=== PATIENT | female | born 1950 | race Caucasian/White ===

== ENCOUNTER 2025-05-06 05:30 | Outpatient (REF) | payer OTHER, SELFPAY ==
[2025-05-06 05:33] LABS: MANUAL DIFF FLAG NO
--- OUTSIDE RECORDS SUMMARY | 2025-05-06 05:33 | XMS_ITS | Clinical Summary ---
Author Organization [facility] Address [address] [place] [address] Care Team Providers Care Solar Sales Specialist Name Role Phone Marleny Gutierrez MD Primary Care Provider [phone] Allergies No known active allergies Medications amLODIPine (NORVASC) 5 mg tablet Take 1 tablet (5 mg total) by mouth 1 (one) time each day. 03/21/2024 Active atorvastatin (LIPITOR) 40 mg tablet Take 1 tablet (40 mg total) by mouth 1 (one) time each day. 04/16/2024 Active dronedarone (Multaq) 400 mg tablet Take 1 tablet (400 mg total) by mouth 2 (two) times a day. 01/16/2024 Active levothyroxine (SYNTHROID, LEVOTHROID) 88 mcg tablet Take 1 tablet (88 mcg total) by mouth 1 (one) time each day. 03/21/2024 Active rivaroxaban (Xarelto) 20 mg tablet Take 1 Tablet by mouth Daily before dinner. 01/16/2024 Active Active Problems Problem Noted Date Diagnosed Date Hypertension 09/28/2024 Overview (09/28/2024): Last Assessment & Plan: Patient blood pressure somewhat robust in office today, but well-controlled on chart review. For now, no changes in her current treatment plan with amlodipine. Coronary artery disease invo lving red devil coronary artery of red devil heart without angina pectoris 01/16/2024 Overview (09/28/2024): Type II NSTEMI 11/2022 in the setting of A-fib with RVR Proximal D1 70% stenosis managed medically Last Assessment & Plan: The patient has nonobstructive coronary artery disease not felt to be the etiology of her elevated troponin during her most recent hospitalization. Instead, it is felt that she has a type II demand mediated NSTEMI in the setting of A-fib with RVR. Therefore, in addition to ongoing medical therapy with her statin, maintenance of normal sinus rhythm is imperative. For now, continue her rhythm control strategy with Multaq as above. If she continues to have episodes of atrial fibrillation, would refer to EP for consideration of alternative strategy from the normal sinus rhythm. Demand ischemia ([facility] V24, CMS/[facility] V28) 12/18 Overview (09/28/2024): 3/24 NSTEMI with rapid afib Osteoporosis 07/16/2022 Overview (09/28/2024): 10 T score spine -2.5 hip -3.1 Aortic stenosis 06/07/2022 Overview (09/28/2024): 8/ mild and AI, mild MS and MR 2/24 mild to mod COVID-19 virus infection 05/18/2022 Overview (09/28/2024): 8.24.22 Thoracic aortic aneurysm ([facility] V24) Overview (09/28/2024): 8/22 3.7 cm, mild dilatation Atrial fibrillation and flutter (CMS/[facility] V24, CM S/[facility] V28) 12/30/2021 Overview (09/28/2024): Anticoagulated with Xarelto Rhythm control strategy with Multaq Last Assessment & Plan: Patient had another episode of A-fib with RVR in the setting of running out of her Multaq for a couple of days. She remains anticoagulated with Xarelto. He had a long discussion about the pathophysiology and risks of atrial fibrillation. All questions were answered. HLD (hyperlipidemia) 12/30/2021 Overview (09/28/2024): Last Assessment & Plan: Patient's lipid profile is reasonably well-controlled on current dose statin. It is not clear if her most recent lipid profile is on her current 40 mg atorvastatin. The indication and mechanism of action for statins is discussed with the patient. All her questions were answered. She agrees to continue this medication. Can update her lipid profile if not already done by her PCP at her next visit. Seizure (CMS/HCC V24, CMS/HCC V28) 12/30/2021 Overview (09/28/2024): With subarachnoid bleed Subarachnoid hematoma (CMS/HCC V24, CMS/HCC V28) 12/30/2021 Overview (09/28/2024): Secondary to aneurysm Bernard's esophagus 12/03/2018 Iron deficiency anemia 11/01/2018 Vulvar cancer, carcinoma (CMS/HCC V24, CMS/[facility] V 28) 03/23/2017 Overview (09/28/2024): Scheduled radical vulvectomy at [facility] Dr. 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 Lichen sclerosus 08/14/2013 Hypothyroidism 01/15/2013 Immunizations Name Administration Dates Next Due Diptheria & Tetanus, 6wks to less than 7yo 06/07 Surgical History Surgery Date Site/Laterality Comments OVARIAN CYST REMOVAL PROCEDURE: SD OVARIAN CYSTECTOMY UNI/BI; COMMENT: laproscopic COLONOSCOPY 04/08/2015 PROCEDURE: HISTORICAL COLONOSCOPY; COMMENT: Diverticulosis, hemorrhoids ESOPHAGOGASTRODUODENOSCOPY 04/08/2015 PROCEDURE: SD ESOPHAGOGASTRODUODENOSCOPY TRANSORAL DIAGNOSTIC; COMMENT: Barretts esophagus, hiatal hernia, erosive gastritis OTHER SURGICAL HISTORY 04/13/2017 N/A PROCEDURE: SD VULVECTOMY RADICAL COMPLETE; COMMENT: vulvar carcinoma OTHER SURGICAL HISTORY PROCEDURE: HISTORY OTHER; COMMENT: post aneurysm coiling COLONOSCOPY 10/2018 PROCEDURE: HISTORICAL COLONOSCOPY Medical History Medical History Date Comments History of stroke 09/24/2010 DX:History of stroke; COMMENT: had left sided weakness, recovered completerly Hypertension DX:Hypertension Hypothyroidism 01/15/2013 DX:Hypothyroidis m COVID-19 virus infection 05/18/2022 DX:COVI D-19 virus infection; COMMENT: 05.17.22 Thoracic aortic aneurysm ([facility] V24) 05/18/2022 DX:Thoracic aortic aneurysm (HCC); COMMENT: 05/15 3.7 cm, mild dilatation Aortic stenosis 06/07/2022 DX:Aortic stenos is; COMMENT: 05/15 mild and AI, mild MS and MR Osteoporosis 07/16/2022 DX:Osteoporosis; COMMENT: 07/15 T score spine -2.5 hip -3.1 Demand ischemia ([facility] V24 , [facility] V28) 12/19/2023 DX:Demand ischemia (HCC); CO MMENT: 12/15 NSTEMI with rapid afib Family History Medical History Relation Name Comments Stroke Mother at 47 Other: sinus cancer Sister Breast cancer Neg Hx Colon cancer Neg Hx Ovarian cancer Neg Hx Relation Name Status Comments Father Alive Mother Sister Social History Tobacco Use Types Packs/Day Years Used Date Smoking Tobacco: Former Smokeless Tobacco: Never Alcohol Use Standard Drinks/Week Comments Yes 0 (1 standard drink = 0.6 oz pur e alcohol) Comments Unknown Sex and Gender Information Value Date Recorded Sex Assigned at Not on file Legal Sex Female 7:00 AM EST Gender Identity Not on file Sexual Orientation Not on file Obstetrics History Last Filed Vital Signs Vital Sign Reading Time Taken Comments Blood Pressure 156/80 01/16/2024 1:06 PM EDT Sitting R Arm Pulse 72 01/16/2024 1:06 PM EDT Temperature - - Respiratory Rate - - Oxygen Saturation - - Inhaled Oxygen Concentration - - Weight 77.7 kg (171 lb 3.2 oz) 01/16/2024 1:06 PM EDT Height 154.9 cm (5' 1 ) 01/16/2024 1:06 PM EDT Body Mass Index 32.35 01/16/2024 1:06 PM EDT Plan of Treatment Health Maintenance Due Date Last Done Comments Zoster Vaccines (1 of 2) 1969 Pneumococcal Vaccine: 50+ Years (1 of 1 - PCV) 2000 DTaP,Tdap,and Td Vaccines (2 - Tdap) 06/07/2016 06/07/2006 COVID-19 Vaccine (3 - Modern a risk series) 02/17/2021 01/20/2021, 12/23/2020 Falls Risk Assessment 09/01/2022 Social Influencers of Health Screening 09/01/2022 Breast Cancer Screening 07/14/2024 07/14/20, 09/27/2018 Hypertension/CHF/CAD Annual BMP Blood Test 09/14/2024 09/14/2023 Depression Screening 09/24/2024 Influenza Vaccine (#1) 2025 RSV Immunization Adult Patients (1 - 1-dose 75+ series) 2025 Cholesterol Screening (Lipid Panel) 09/14/2028 09/14/2023 Colorectal Cancer Screening: Colonoscopy 11/12/2028 11/12/2018 Osteoporosis Screening (Bone Density Screening) 07/14/2032 07/14/2022, 09/30/2018 Hepatitis C Screening Completed 08/14/2013 HIB Vaccines Aged Out No longer eligi ble based on patient's age to complete this topic HPV Vaccines Aged Out No longer eligi ble based on patient's age to complete this topic Hepatitis A Vaccines Aged Out No long er eligible based on patient's age to complete this topic Hepatitis B Vaccines Aged Out No long er eligible based on patient's age to complete this topic IPV Vaccines Aged Out No longer eligi ble based on patient's age to complete this topic MMR Vaccines Aged Out No longer eligi ble based on patient's age to complete this topic Meningococcal ACWY Vaccine Aged Out N o longer eligible based on patient's age to complete this topic Meningococcal B Vaccine Aged Out No l onger eligible based on patient's age to complete this topic RSV Immunization Patients Under 20 months Aged Out No longer eligible b ased on patient's age to complete this topic Varicella Vaccines Aged Out No longer eligible based on patient's age to complete this topic Procedures Procedure Name Priority Date/Time Associated Diagnosis Comments HM ANNUAL BMP BLOOD TEST Routine 09/14/2023 LIPID PANEL Routine 09/14/2023 DXA BONE DENSITY STUDY 1+ SITS AXIAL SKEL Routine 07/14/2022 10:02 AM EDT Unspecified menopausal and perimenopausal disorder SCREENING MAMMOGRAPHY BI 2-VIEW BREAST INC CAD Routine 07/14/2022 9:50 AM EDT Encounter for screening mammogram for malignant neoplasm of breast COLONOSCOPY Routine 11/12/2018 HEPATITIS C SCREENING Routine 08/14/2013 from Last 3 Months or Most Recently Relevant to Health Maintenance Results * Annual BMP Blood Test (09/14/2023) Annual BMP Blood Test abstracted Historical Provider MD HEALTH MAINTENANCE Final Result * (ABNORMAL) Lipid panel (09/14/2023) LDL/HDL Ratio 2 0 - 4 Triglycerides 88 0 - 150 mg/dL Cholesterol 246(A) 0 - 200 mg/dL HDL 127 >=40 mg/dL LDL Cholesterol 102(A) 0 - 100 mg/dL Blood Venous blood specimen / Unknown Historical Provider LAB BLOOD ORDERABLES Penny l Result * DXA BONE DENSITY STUDY 1+ SITS AXIAL SKEL (07/14/2022 10:02 AM EDT) Anatomical Region Laterality Modality Bone Densitometr y 01/12/2022 11:3 1 AM EDT Narrative 07/14/2022 11:58 AM EDT BONE DENSITY SCAN (DEXA): FINDINGS: Lumbar Spine T-score is -2.5. (SD relative to 20-29 y/o adult) Z-score is -0.3. (SD relative to age matched peers) This is considered osteoporosis by WHO criteria. Left Hip T-score is -3.1. Z-score is -1.2. This is considered osteoporosis by WHO criteria. Comparison exam(s): None. IMPRESSION: IMPRESSION: Osteoporosis by WHO criteria. The [facility] Department of Internal Medicine recommends using National Osteoporosis Foundation (NOF) guidelines in treatment decisions related to osteoporosis. NOF guidelines suggest considering treatment for postmenopausal women and men aged 50 or older presenting with the following: History of hip or vertebral fracture. T-score = -2.5 (DXA) at the femoral neck, total hip, or spine, after appropriate evaluation to exclude secondary causes. Low bone mass (T-score between -1.0 and -2.5 at the femoral neck or spine) AND a 10-year probability of a hip fracture = 3% OR a 10-year probability of a major osteoporosis-related fracture = 20% based on the [place]-adapted WHO algorithm Please note that all treatment decisions require clinical judgment and consideration of individual patient factors, including patient preferences, co-morbidities, previous drug use, risk factors not captured in the FRAX model (e.g., frailty, falls, vitamin D deficiency, increased bone turnover, interval significant decline in bone density) and possible under- or over-estimation of fracture risk by FRAX. Optional alternative screening schedule based on ellen Mae al., [facility] October 12, 2011 for patients with osteopenia (based on hip BMD T-score) is as follows: * advanced osteopenia (T scores -2.00 to -2.49), BMD testing every year * moderate osteopenia (T scores -1.50 to -1.99), BMD testing every 5 years mild osteopenia or normal BMD (T scores -1.50 and higher), BMD testing every 15 years Procedure Note Cayla Rodriges MD - 09/12/2022 BONE DENSITY SCAN (DEXA): FINDINGS: Lumbar Spine T-score is -2.5. (SD relative to 20-29 y/o adult) Z-score is -0.3. (SD relative to age matched peers) This is considered osteoporosis by WHO criteria. Left Hip T-score is -3.1. Z-score is -1.2. This is considered osteoporosis by WHO criteria. Comparison exam(s): None. IMPRESSION: IMPRESSION: Osteoporosis by WHO criteria. The [facility] Department of Internal Medicine recommendsusing National Osteoporosis Foundation (NOF) guidelines in treatment decisions related toosteoporosis. NOF guidelines suggest considering treatment for postmenopausal women and menaged 50 or older presenting with the following: History of hip or vertebral fracture. T-score = -2.5 (DXA) at the femoral neck, total hip, or spine, afterappropriate evaluation to exclude secondary causes. Low bone mass (T-score between -1.0 and -2.5 at the femoral neck or spine)AND a 10-year probability of a hip fracture = 3% OR a 10-year probability of a majorosteoporosis-related fracture = 20% based on the [place]-adapted WHO algorithm Please note that all treatment decisions require clinical judgment andconsideration of individual patient factors, including patient preferences, co- morbidities,previous drug use, risk factors not captured in the FRAX model (e.g., frailty, falls, vitaminD deficiency, increased bone turnover, interval significant decline in bone density) andpossible under- or over-estimation of fracture risk by FRAX. Optional alternative screening schedule based on ellen Mae al., NEJMJanuary 2011 for patients with osteopenia (based on hip BMD T-score) is as follows: * advanced osteopenia (T scores -2.00 to -2.49), BMD testing every year * moderate osteopenia (T scores -1.50 to -1.99), BMD testing every 5years mild osteopenia or normal BMD (T scores -1.50 and higher), BMD testingevery 15 years Marleny Gutierrez MD IMG DXA PROCEDURES Final Result * SCREENING MAMMOGRAPHY BI 2-VIEW BREAST INC CAD (07/14/2022 9:50 AM EDT) Anatomical Region Laterality Modality Radiographic Nicole ging 01/12/2022 11:3 1 AM EDT Narrative 07/14/2022 6:20 PM EDT This is a summary report. The complete report is available in the patient's medical record. If you cannot access the medical record, please contact the sending organization for a detailed fax or copy. Exam: Screening mammogram Findings: Digital bilateral full-field screening mammography is performed with tomosynthesis and interpreted with the aid of computer-aided detection. Comparison is made with 12/11/2014 and 06/25/2006. Breast parenchyma is composed of scattered fibroglandular densities. No new suspicious mass, architectural distortion, or suspicious calcifications. Impression: No mammographic evidence of malignancy. BI-RADS 1 - negative Procedure Note Cayla Rodriges MD - 09/12/2022 This is a summary report. The complete report is available in thepatient's medical record. If you cannot access the medical record, pleasecontact the sending organization for a detailed fax or copy. Exam: Screening mammogram Findings: Digital bilateral full-field screening mammography is performedwith tomosynthesis and interpreted with the aid of computer-aideddetection. Comparison is made with 12/11/2014 and 06/25/2006. Breast parenchyma is composed of scattered fibroglandular densities. Nonew suspicious mass, architectural distortion, or suspiciouscalcifications. Impression: No mammographic evidence of malignancy. BI-RADS 1 - negative Marleny Gutierrez MD IMG XR PROCEDURES Final Result * Colonoscopy (11/12/2018) Colonoscopy no interpreta tion,abstr acted Anatomical Region Laterality Modality Other Historical Provider HEALTH MAINTENANCE Final Result * Hepatitis C Screening (08/14/2013) Hepatitis C Screening abstracted Historical Provider HEALTH MAINTENANCE Final Result from Last 3 Months or Most Recently Relevant to Health Maintenance Care Teams Solar Sales Specialist Relationship Specialty Start Date End Date Marleny Gutierrez MD [address] [place] [address] PCP - General Internal Medicine 08/04/21
--- OUTSIDE RECORDS SUMMARY | 2025-05-06 05:33 | XMS_ITS | Clinical Summary ---
[facility] Address [address] [place] [address] Care Team Providers Care Muleser Name Role Phone Marleny Gutierrez MD Primary Care Provider [phone] Allergies No known active allergies Medications Medication Sig Dispensed Refills Start Date End Date Status levothyroxine (SYNTHROID) tablet 88 mcg Take 88 mcg by mouth every morning on an empty stomach. 0 Active amLODIPine (NORVASC) tablet 5 mg Take 5 mg by mouth daily. 0 Active atorvastatin (LIPITOR) tablet 40 mg Take 40 mg by mouth daily. 0 Active omeprazole (PriLOSEC) 20 MG capsule Take 20 mg by mouth daily. 0 Active apixaban (ELIQUIS) 5 MG TABS tablet Take by mouth every 12 (twelve) hours. 0 Active Active Problems No known active problems Social History Tobacco Use Types Packs/Day Years Used Date Smoking Tobacco: Never Smokeless Tobacco: Never Alcohol Use Standard Drinks/Week Comments No 0 (1 standard drink = 0.6 oz pur e alcohol) Sex and Gender Information Value Date Recorded Sex Assigned at Not on file Gender Identity Not on file Sexual Orientation Not on file Last Filed Vital Signs Vital Sign Reading Time Taken Comments Blood Pressure 145/68 11/21/2021 10:00 AM EST Pulse 81 11/21/2021 10:00 AM EST Temperature 37.1 C (98.7 F) 11/21/2021 10:00 AM EST Respiratory Rate - - Oxygen Saturation 100% 11/21/2021 10:00 AM EST Inhaled Oxygen Concentration - - Weight 75.8 kg (167 lb) 11/21/2021 10:00 AM EST Height 152.4 cm (5') 11/21/2021 10:00 AM EST Body Mass Index 32.61 11/21/2021 10:00 AM EST Plan of Treatment Health Maintenance Due Date Last Done Comments Hepatitis C Screening 1950 COVID-19 Vaccine (#1) 1950 Depression Screening 1962 Preventative Health Evaluation 1968 DTap / Tdap / Td (1 - Tdap) 1969 Colon Cancer Screening (Colonoscopy) 1995 Breast Cancer Screening (Mammogram) 2000 Shingrix-Zoster Vaccine (1 of 2) 2000 Fall Risk Assessment 2015 Osteoporosis Screening (DEXA Scan) 2015 Pneumococcal Vaccine (1 of 1 - PCV) 2015 Influenza Vaccine (#1) 2025 RSV Adult > 60+ Yrs or Pregn ant (1 - 1-dose 75+ series) 2025 Hepatitis B Vaccines Aged Out No long er eligible based on patient's age to complete this topic RSV Ped < 20 months Aged Out No longe r eligible based on patient's age to complete this topic Care Teams Muleser Relationship Specialty Start Date End Date Marleny Gutierrez MD PCP - General Internal Medicine 11/21/21
[2025-05-06 06:04] LABS: Anion Gap 12 (12-20); Blood Urea Nitrogen 21 mg/dL (9-16); Calcium 8.5 mg/dL (8.4-10.2); Carbon Dioxide 24 mmol/L (22-29); Chloride 111 mmol/L (96-108); Estimated Glomerular Filt Rate > 60; Potassium 4.0 mmol/L (3.3-5.1); Sodium 143 mmol/L (135-145)
[2025-05-06 06:17] LABS: Hematocrit 33.6 % (37.0-47.0); Hemoglobin 10.5 g/dl (12.0-16.0); Imm Gran Abs Auto 0.02 X10*3/uL (0.00-0.03); Imm Gran Pct Auto 0.3 % (0.0-0.4); Lymphocytes Absolute Auto 1.7 X10*3/uL (1.2-4.9); Mean Corpuscular HGB Conc 31.3 g/dl (31.0-35.0); Mean Corpuscular Hemoglobin 27.8 pg (27.0-33.0); Mean Corpuscular Volume 88.9 fL (80.0-98.0); NRBC Abs Auto 0.000 X10*3/uL (0.0-0.012); NRBC Pct Auto 0.0 /100WBC (0.0-0.2); Platelet Count 267 X10*3/uL (160-400); Red Blood Count 3.78 X10*6/uL (4.20-5.50); White Blood Count 7.2 X10*3/uL (4.8-10.8)
== END 2025-05-06 05:31 | disposition home or self-care (01) ==
LOC: HO.MMNH3L 05:30
PROVIDERS: Visit Provider Student in an Organized Health Care Education/Training Program
DX: I69.351 Hemiplegia and hemiparesis following cerebral infarction affecting right dominant side (principal)
CPT/HCPCS: 36415; 80048; 85025

== ENCOUNTER 2025-05-16 15:42 | Outpatient (REF) | payer OTHER, SELFPAY ==
--- OUTSIDE RECORDS SUMMARY | 2025-05-16 15:44 | XMS_ITS | Clinical Summary ---
[facility] Organization [facility] Address [address] [place] [address] Care Team Providers Care Supervisor Buffing And Pasting Name Role Phone Marleny Gutierrez MD Primary Care Provider [phone] Allergies No known active allergies Medications Medication [...] age to complete this topic Care Teams Supervisor Buffing And Pasting Relationship Specialty Start Date End Date Marleny Gutierrez MD PCP - General Internal Medicine 11/21/21
[2025-05-16 16:11] LABS: Appearance Urine Clear; Glucose Urine UA Negative (Negative); PH 6.0 (5.0-9.0); Specific Gravity - Urine 1.025 (1.005-1.025); UMIC TRIGGER UA YES
== END 2025-05-16 15:43 | disposition home or self-care (01) ==
LOC: HO.MMNH3L 15:42
PROVIDERS: Visit Provider Family Medicine
DX: D64.9 Anemia, unspecified (principal)
CPT/HCPCS: 81001; 81003; 87086

== ENCOUNTER 2025-05-19 18:05 | Outpatient (REF) | payer OTHER, SELFPAY ==
--- OUTSIDE RECORDS SUMMARY | 2025-05-19 18:10 | XMS_ITS | Clinical Summary ---
[facility] Organization [facility] Address [address] [place] [address] Care Team Providers Care Aircrewman Name Role Phone Marleny Gutierrez MD Primary Care Provider [phone] Allergies No known active allergies Medications amLODIPine [...] amlodipine. Coronary artery disease invo lving [place] coronary artery of [place] heart without angina pectoris 01/16/2024 Overview (09/28/2024): [...] from the normal sinus rhythm. Demand ischemia ([facility] V24, CMS/[facility] V28) 12/18 Overview (09/28/2024): 3/24 NSTEMI with rapid afib Osteoporosis 07/16/2022 Overview (09/28/2024): 10 T score spine -2.5 hip -3.1 Aortic stenosis 06/07/2022 Overview (09/28/2024): 8/ mild and AI, mild MS and MR 2/24 mild to mod COVID-19 virus infection 05/18/2022 Overview (09/28/2024): 8.24.22 Thoracic aortic aneurysm ([facility] V24) Overview (09/28/2024): 8/22 3.7 cm, mild dilatation Atrial fibrillation and flutter (CMS/[facility] V24, CM S/[facility] V28) 12/30/2021 Overview (09/28/2024): Anticoagulated with Xarelto [...] anemia 11/01/2018 Vulvar cancer, carcinoma (CMS/HCC V24, CMS/[facility] V 28) 03/23/2017 Overview (09/28/2024): Scheduled radical vulvectomy at [facility] Dr. Polanco April 13, 2017 with [...] virus infection; COMMENT: 05.17.22 Thoracic aortic aneurysm ([facility] V24) 05/18/2022 DX:Thoracic aortic aneurysm (HCC); COMMENT: 05/15 3.7 cm, mild dilatation Aortic stenosis 06/07/2022 DX:Aortic stenos is; COMMENT: 05/15 mild and AI, mild MS and MR Osteoporosis 07/16/2022 DX:Osteoporosis; COMMENT: 07/15 T score spine -2.5 hip -3.1 Demand ischemia ([facility] V24 , [facility] V28) 12/19/2023 DX:Demand ischemia (HCC); CO MMENT: [...] IMPRESSION: IMPRESSION: Osteoporosis by WHO criteria. The [facility] Department of Internal Medicine recommends using National [...] screening schedule based on ellen Mae al., [facility] October 12, 2011 for patients with osteopenia [...] IMPRESSION: IMPRESSION: Osteoporosis by WHO criteria. The [facility] Department of Internal Medicine recommendsusing National Osteoporosis [...] Recently Relevant to Health Maintenance Care Teams Aircrewman Relationship Specialty Start Date End Date Marleny Gutierrez MD [address] [place] [address] PCP - General Internal Medicine 08/04/21
--- OUTSIDE RECORDS SUMMARY | 2025-05-19 18:10 | XMS_ITS | Clinical Summary ---
Author Organization [facility] Address [address] [place] [address] Care Team Providers Care Endocrinology Specialist Name Role Phone Marleny Gutierrez MD Primary Care Provider [phone] Allergies No known active allergies Medications Medication [...] age to complete this topic Care Teams Endocrinology Specialist Relationship Specialty Start Date End Date Marleny Gutierrez MD PCP - General Internal Medicine 11/21/21
[2025-05-19 18:15] LABS: Appearance Urine Turbid; Glucose Urine UA Negative (Negative); PH 6.5 (5.0-9.0); Specific Gravity - Urine 1.020 (1.005-1.025); UMIC TRIGGER UA YES
== END 2025-05-19 18:06 | disposition home or self-care (01) ==
LOC: HO.MMNH3L 18:05
PROVIDERS: Visit Provider Family Medicine
DX: D64.9 Anemia, unspecified (principal)
CPT/HCPCS: 81001; 87086

== ENCOUNTER 2025-07-09 05:37 | Outpatient (REF) | payer MEDICARE, MEDICAID, SELFPAY ==
--- OUTSIDE RECORDS SUMMARY | 2025-07-09 05:41 | XMS_ITS | Encounter Summary ---
Author Organization [facility] Address [address] [place] [address] Care Team Providers Care Flight Surveyor Name Role Phone Marleny Gutierrez MD Primary Care Provider [phone] Reason for Visit * Reason Onset Date Comments abnormal ekg 07/02/2025 Encounter Details Date Type Department Care Team (Late st Contact Info) Description 07/02/2025 Telephone [facility] - [facility] [address] [facility] [address] [place] [phone] Winsome Krishnamurthy MD [address] [place] [address] Social History Tobacco Use Types Packs/Day Years Used Date Smoking Tobacco: Former Smokeless Tobacco: Never Alcohol Use Standard Drinks/Week Comments Yes 0 (1 standard drink = 0.6 oz pur e alcohol) Comments Unknown Sex and Gender Information Value Date Recorded Sex Assigned at Not on file Legal Sex Female 7:00 AM EST Gender Identity Not on file Sexual Orientation Not on file documented as of this encounter Progress Notes * Ragini Faulkner RN - 07/03/2025 3:42 PM EDT Spoke with Coleen at [facility] and stated she needed to fax tracings. Tracings were not included in fax. * Ragini Faulkner RN - 07/03/2025 9:04 AM EDT Addendum: 1:10 pm No EKGs received. CHRISTEN 12/2023. Asymptomatic. Book a triage appt or where to book? See below. ~9am Spoke with Coleen at [facility] [phone] who reports doctor at facility wants patient seen by ccardiology for an abnormal EKG from December. I asked her to fax that and asked if there was a recent EKG that was done that was concerning to doctor. She stated no but she was going to do anEKG and fax that over as well. Reviewed med list and updated. Per nurse no cardiac complaints. Lungs clear, no edema. Denied chest pain, dizziness, palpitations.VS 112/75, 73 pulse regular. From 6anm today. Awaiting EKGS . * Domenic Mahmood - 07/02/2025 11:03 AM EDT Coleen from [facility] [phone] is calling stating recently patient had a abnormal EKG and the Dr at the facility, would like her to be seen with cardiology, please call. documented in this encounter Plan of Treatment Not on file documented as of this encounter Visit Diagnoses Not on filedocumented in this encounter Discontinued Medications Medication Sig Discontinue Reason Start Date End Da te rivaroxaban (Xarelto) 20 mg tablet Take 1 Tablet by mouth Daily before dinner. 01/16/2024 07/03/2025 dronedarone (Multaq) 400 mg tablet Take 1 tablet (400 mg total) by mouth 2 (two) times a day. 01/16/2024 07/03/2025 rivaroxaban (Xarelto) 20 mg tablet Take 1 Tablet by mouth Daily before dinner. 01/16/2024 07/03/2025 amLODIPine (NORVASC) 5 mg tablet Take 1 tablet (5 mg total) by mouth 1 (one) time each day. 03/21/2024 07/03/2025 documented as of this encounter Historical Medications * This list may reflect changes made after this encounter. guaiFENesin (ROBITUSSIN) 100 mg/5 mL liquid Take 5 mL (100 mg total) by mouth every 4 (four) hours if needed for cough. 07/03/2025 escitalopram (LEXAPRO) 10 mg tablet Take 1 tablet (10 mg total) by mouth 1 (one) time each day. 07/03/2025 ferrous sulfate 325 mg (65 mg iron) EC tablet Take 1 tablet (325 mg total) by mouth every other day. Do not crush, chew, or split. 07/03/2025 melatonin 3 mg tablet Take 1 tablet (3 mg total) by mouth at bedtime as needed for sleep. 07/03/2025 carvediloL (COREG) 3.125 mg tablet Take 1 tablet (3.125 mg total) by mouth 2 (two) times a day with meals. 07/03/2025 lisinopriL (PRINIVIL,ZESTRIL ) 10 mg tablet Take 1 tablet (10 mg total) by mouth at bedtime. amLODIPine (NORVASC) 10 mg tablet Take 1 tablet (10 mg total) by mouth at bedtime. apixaban (ELIQUIS) 5 mg tablet Take 1 tablet (5 mg total) by mouth 2 (two) times a day. 07/03/2025 added in this encounter Care Teams Flight Surveyor Relationship Specialty Start Date End Date Marleny Gutierrez MD [address] [place] [address] PCP - General Internal Medicine 08/04/21 documented as of this encounter
--- OUTSIDE RECORDS SUMMARY | 2025-07-09 05:42 | XMS_ITS | Clinical Summary ---
Author Organization [facility] Address [address] [place] [address] Care Team Providers Care Sales Service Representative Name Role Phone Marleny Gutierrez MD Primary Care Provider [phone] Allergies No known active allergies Medications Medication [...] Tdap) 1969 Colon Cancer Screening (Colonoscopy) 1995 Shingrix-Zoster Vaccine (1 of 2) 2000 Fall [...] age to complete this topic Care Teams Sales Service Representative Relationship Specialty Start Date End Date Marleny Gutierrez MD PCP - General Internal Medicine 11/21/21
--- OUTSIDE RECORDS SUMMARY | 2025-07-09 05:42 | XMS_ITS | Clinical Summary ---
Author Organization [facility] Address [address] [place] [address] Care Team Providers Care Business Computers Teacher Name Role Phone Marleny Gutierrez MD Primary Care Provider [phone] Allergies No known active allergies Medications atorvastatin (LIPITOR) 40 mg tablet Take 1 tablet (40 mg total) by mouth 1 (one) time each day. 4 Active levothyroxine (SYNTHROID, LEVOTHROID) 88 mcg tablet Take 1 tablet (88 mcg total) by mouth 1 (one) time each day. 4 Active apixaban (ELIQUIS) 5 mg tablet Take 1 tablet (5 mg total) by mouth 2 (two) times a day. 5 Active amLODIPine (NORVASC) 10 mg tablet Take 1 tablet (10 mg total) by mouth at bedtime. Active lisinopriL (PRINIVIL,ZEST RIL) 10 mg tablet Take 1 tablet (10 mg total) by mouth at bedtime. Active carvediloL (COREG) 3.125 mg tablet Take 1 tablet (3.125 mg total) by mouth 2 (two) times a day with meals. 5 Active melatonin 3 mg tablet Take 1 tablet (3 mg total) by mouth at bedtime as needed for sleep. 5 Active ferrous sulfate 325 mg (65 mg iron) EC tablet Take 1 tablet (325 mg total) by mouth every other day. Do not crush, chew, or split. 5 Active escitalopram (LEXAPRO) 10 mg tablet Take 1 tablet (10 mg total) by mouth 1 (one) time each day. 5 Active guaiFENesin (ROBITUSSIN) 100 mg/5 mL liquid Take 5 mL (100 mg total) by mouth every 4 (four) hours if needed for cough. 5 Active amLODIPine (NORVASC) 5 mg tablet Take 1 tablet (5 mg total) by mouth 1 (one) time each day. 4 07/03/20 25 Discontinued dronedarone (Multaq) 400 mg tablet Take 1 tablet (400 mg total) by mouth 2 (two) times a day. 4 07/03/20 25 Discontinued rivaroxaban (Xarelto) 20 mg tablet Take 1 Tablet by mouth Daily before dinner. 4 07/03/20 25 Discontinued Active Problems Problem Noted Date Diagnosed Date Hypertension 09/28/2024 Overview (09/28/2024): Last Assessment & Plan: Patient blood pressure somewhat robust in office today, but well-controlled on chart review. For now, no changes in her current treatment plan with amlodipine. Coronary artery disease invo lving [place] coronary artery of [place] heart without angina pectoris 01/16/2024 Overview (09/28/2024): [...] from the normal sinus rhythm. Demand ischemia (CMS/HCC V24, CMS/HCC V28) 12/18 Overview (09/28/2024): 12/15 NSTEMI with rapid afib Osteoporosis 07/16/2022 Overview (09/28/2024): 07/15 T score spine -2.5 hip -3.1 Aortic stenosis 06/07/2022 Overview (09/28/2024): 05/15 mild and AI, mild MS and MR 2/24 mild to mod COVID-19 virus infection 05/18/2022 Overview (09/28/2024): 8.24.22 Thoracic aortic aneurysm ([facility] V24) Overview (09/28/2024): 05/15 3.7 cm, mild dilatation Atrial fibrillation and flutter ([facility] V24, CM S/[facility] V28) 12/30/2021 Overview (09/28/2024): Anticoagulated with Xarelto [...] her PCP at her next visit. Seizure (CMS/[facility] V24, CMS/[facility] V28) 12/30/2021 Overview (09/28/2024): With subarachnoid bleed Subarachnoid hematoma ([facility] V24, [facility] V28) 12/30/2021 Overview (09/28/2024): Secondary to aneurysm Bernard's esophagus 12/03/2018 Iron deficiency anemia 11/01/2018 Vulvar cancer, carcinoma ([facility] V24, [facility] V 28) 03/23/2017 Overview (09/28/2024): Scheduled radical vulvectomy at [facility] Dr. 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 Lichen sclerosus 08/14/2013 Hypothyroidism 01/15/2013 Encounters Date Type Department Care Team Description 07/02/2025 Telephone [facility] - [facility] [address] [facility] [address] [place] [address] Winsome Krishnamurthy MD from Last 3 Months Immunizations Immunization Administration Dates Next Due Diptheria & Tetanus, 6wks to less than 7yo 06/07 Surgical History Surgery Date Site/Laterality Comments OVARIAN CYST REMOVAL PROCEDURE: OR OVARIAN CYSTECTOMY UNI/BI; COMMENT: laproscopic COLONOSCOPY 04/08/2015 PROCEDURE: HISTORICAL COLONOSCOPY; COMMENT: Diverticulosis, hemorrhoids ESOPHAGOGASTRODUODENOSCOPY 04/08/2015 PROCEDURE: OR ESOPHAGOGASTRODUODENOSCOPY TRANSORAL DIAGNOSTIC; COMMENT: Barretts esophagus, hiatal hernia, erosive gastritis OTHER SURGICAL HISTORY 04/13/2017 N/A PROCEDURE: OR VULVECTOMY RADICAL COMPLETE; COMMENT: vulvar carcinoma OTHER SURGICAL HISTORY PROCEDURE: HISTORY OTHER; COMMENT: post aneurysm coiling COLONOSCOPY 10/2018 PROCEDURE: HISTORICAL COLONOSCOPY Medical History Medical History Date Comments History of stroke 09/24/2010 DX:History of stroke; COMMENT: had left sided weakness, recovered completerly Hypertension DX:Hypertension Hypothyroidism 01/15/2013 DX:Hypothyroidis m COVID-19 virus infection 05/18/2022 DX:COVI D-19 virus infection; COMMENT: 05.17.22 Thoracic aortic aneurysm ([facility] V24) 05/18/2022 DX:Thoracic aortic aneurysm (HCC); COMMENT: 05/15 3.7 cm, mild dilatation Aortic stenosis 06/07/2022 DX:Aortic stenos is; COMMENT: 05/15 mild and AI, mild MS and MR Osteoporosis 07/16/2022 DX:Osteoporosis; COMMENT: 07/15 T score spine -2.5 hip -3.1 Demand ischemia ([facility] V24 , [facility] V28) 12/19/2023 DX:Demand ischemia (HCC); CO MMENT: [...] 09/01/2022 Social Influencers of Health Screening 09/01/2022 Hypertension/CHF/CAD Annual BMP Blood Test 09/14/2024 09/14/2023 Depression Screening 09/24/2024 Influenza Vaccine (#1) 2025 RSV Immunization Adult Patients (1 - 1-dose 75+ series) 2025 Cholesterol Screening (Lipid Panel) 09/14/2028 09/14/2023 Colorectal Cancer Screening: Colonoscopy 11/12/2028 11/12/2018 Osteoporosis Screening (Bone Density Screening) 07/14/2032 07/14/2022, 09/30/2018 Hepatitis C Screening Completed 08/14/2013 Breast Cancer Screening Discontinued 07/14/20, 09/27/2018 HIB Vaccines Aged Out No longer eligi [...] 20 months Aged Out No longer eligible based on patient's age to complete this topic Varicella Vaccines Aged Out No longer eligible based on patient's age to complete this topic Procedures Procedure Name Priority Date/Time Associated Diagnosis Comments ANNUAL BMP BLOOD TEST Routine 09/14/2023 LIPID [...] Test (09/14/2023) Annual BMP Blood Test abstracted us Historical Provider MD HEALTH MAINTENANCE Final Result * (ABNORMAL) Lipid panel (09/14/2023) LDL/HDL Ratio 2 0 - 4 Triglycerides 88 0 - 150 mg/dL Cholesterol 246(A) 0 - 200 mg/dL HDL 127 >=40 mg/dL LDL Cholesterol 102(A) 0 - 100 mg/dL Blood Venous blood specimen / Unknown us Historical Provider LAB BLOOD ORDERABLES Penny l [...] IMPRESSION: IMPRESSION: Osteoporosis by WHO criteria. [facility] Department of Internal Medicine recommends [...] FRAX. Optional alternative screening schedule based on henok Mae., [facility] October 12, 2011 for patients [...] IMPRESSION: IMPRESSION: Osteoporosis by WHO criteria. [facility] Department of Internal Medicine recommendsusing [...] FRAX. Optional alternative screening schedule based on renan Mae, [facility]2011 for patients with osteopenia (based on hip [...] tion,abstr acted Anatomical Region Laterality Modality Other us Historical Provider HEALTH MAINTENANCE Final Result * Hepatitis C Screening (08/14/2013) Pathologist Counts include 234 beds at the [facility] Hepatitis C Screening abstracted Historical Provider HEALTH MAINTENANCE Final Result from Last 3 Months or Most Recently Relevant to Health Maintenance Care Teams Business Computers Teacher Relationship Specialty Start Date End Date Marleny Gutierrez MD [address] [place] [address] PCP - General Internal Medicine 08/04/21
[2025-07-09 05:47] LABS: MANUAL DIFF FLAG NO
[2025-07-09 05:59] LABS: Hematocrit 32.8 % (37.0-47.0); Hemoglobin 10.3 g/dl (12.0-16.0); Imm Gran Abs Auto 0.02 X10*3/uL (0.00-0.03); Imm Gran Pct Auto 0.3 % (0.0-0.4); Lymphocytes Absolute Auto 1.7 X10*3/uL (1.2-4.9); Mean Corpuscular HGB Conc 31.4 g/dl (31.0-35.0); Mean Corpuscular Hemoglobin 27.9 pg (27.0-33.0); Mean Corpuscular Volume 88.9 fL (80.0-98.0); NRBC Abs Auto 0.000 X10*3/uL (0.0-0.012); NRBC Pct Auto 0.0 /100WBC (0.0-0.2); Platelet Count 271 X10*3/uL (160-400); Red Blood Count 3.69 X10*6/uL (4.20-5.50); White Blood Count 7.1 X10*3/uL (4.8-10.8)
== END 2025-07-09 05:38 | disposition home or self-care (01) ==
LOC: HO.MMNH3L 05:37
PROVIDERS: Visit Provider Family Medicine
DX: Z13.89 Encounter for screening for other disorder (principal)
CPT/HCPCS: 36415; 85025

== ENCOUNTER 2025-07-27 05:59 | Outpatient (REF) | payer MEDICARE, MEDICAID, SELFPAY ==
[2025-07-27 06:02] LABS: MANUAL DIFF FLAG NO
--- OUTSIDE RECORDS SUMMARY | 2025-07-27 06:03 | XMS_ITS | Clinical Summary ---
Author Organization [facility] Address [address] [place] [address] Care Team Providers Care Construction Controller Name Role Phone Marleny Gutierrez MD Primary Care Provider [phone] Allergies No known active allergies Medications atorvastatin [...] with amlodipine. Coronary artery disease invo lving [place] coronary artery of [place] heart without angina pectoris 01/16/2024 Overview (09/28/2024): [...] 05/18/2022 Overview (09/28/2024): 8.24.22 Thoracic aortic aneurysm ([facility] V24) Overview (09/28/2024): 05/15 3.7 cm, mild dilatation Atrial fibrillation and flutter ([facility] V24, CM S/[facility] V28) 12/30/2021 Overview (09/28/2024): Anticoagulated [...] her PCP at her next visit. Seizure (CMS/[facility] V24, CMS/[facility] V28) 12/30/2021 Overview (09/28/2024): With subarachnoid bleed Subarachnoid hematoma ([facility] V24, [facility] V28) 12/30/2021 Overview (09/28/2024): Secondary to aneurysm Bernard's esophagus 12/03/2018 Iron deficiency anemia 11/01/2018 Vulvar cancer, carcinoma ([facility] V24, [facility] V 28) 03/23/2017 Overview (09/28/2024): Scheduled radical vulvectomy at [facility] Dr. 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 Lichen sclerosus 08/14/2013 Hypothyroidism 01/15/2013 Encounters Date Type Department Care Team Description 07/02/2025 Telephone [facility] - [facility] [address] [facility] [address] [place] [address] Winsome Krishnamurthy MD from Last 3 Months Immunizations Immunization Administration Dates Next Due Diptheria & Tetanus, 6wks to less than 7yo 06/07 Surgical History Surgery Date Site/Laterality Comments OVARIAN CYST REMOVAL PROCEDURE: [place] OVARIAN CYSTECTOMY UNI/BI; COMMENT: laproscopic COLONOSCOPY 04/08/2015 PROCEDURE: HISTORICAL COLONOSCOPY; COMMENT: Diverticulosis, hemorrhoids ESOPHAGOGASTRODUODENOSCOPY 04/08/2015 PROCEDURE: [place] ESOPHAGOGASTRODUODENOSCOPY TRANSORAL DIAGNOSTIC; COMMENT: Barretts esophagus, hiatal hernia, erosive gastritis OTHER SURGICAL HISTORY 04/13/2017 N/A PROCEDURE: [place] VULVECTOMY RADICAL COMPLETE; COMMENT: vulvar carcinoma OTHER SURGICAL HISTORY PROCEDURE: HISTORY OTHER; COMMENT: post aneurysm coiling COLONOSCOPY 10/2018 PROCEDURE: HISTORICAL COLONOSCOPY Medical History Medical History Date Comments History of stroke 09/24/2010 DX:History of stroke; COMMENT: had left sided weakness, recovered completerly Hypertension DX:Hypertension Hypothyroidism 01/15/2013 DX:Hypothyroidis m COVID-19 virus infection 05/18/2022 DX:COVI D-19 virus infection; COMMENT: 05.17.22 Thoracic aortic aneurysm ([facility] V24) 05/18/2022 DX:Thoracic aortic aneurysm (HCC); COMMENT: 05/15 3.7 cm, mild dilatation Aortic stenosis 06/07/2022 DX:Aortic stenos is; COMMENT: 05/15 mild and AI, mild MS and MR Osteoporosis 07/16/2022 DX:Osteoporosis; COMMENT: 07/15 T score spine -2.5 hip -3.1 Demand ischemia ([facility] V24 , [facility] V28) 12/19/2023 DX:Demand ischemia (HCC); [...] IMPRESSION: IMPRESSION: Osteoporosis by WHO criteria. [facility] Department of Internal Medicine recommends using [...] alternative screening schedule based on henok Mae., [facility] October 12, 2011 for patients with osteopenia (based on hip BMD T-score) is as follows: * advanced osteopenia (T scores -2.00 to -2.49), BMD testing every year * moderate osteopenia (T scores -1.50 to -1.99), BMD testing every 5 years mild osteopenia or normal BMD (T scores -1.50 and higher), BMD testing every 15 years Procedure Note aCyla Rodriges MD - 09/12/2022 BONE DENSITY SCAN (DEXA): FINDINGS: Lumbar Spine T-score is -2.5. (SD relative to 20-29 y/o adult) Z-score is -0.3. (SD relative to age matched peers) This is considered osteoporosis by WHO criteria. Left Hip T-score is -3.1. Z-score is -1.2. This is considered osteoporosis by WHO criteria. Comparison exam(s): None. IMPRESSION: IMPRESSION: Osteoporosis by WHO criteria. [facility] Department of Internal Medicine recommendsusing National [...] alternative screening schedule based on renan Mae, [facility]2011 for patients with osteopenia (based on hip [...] Result * Hepatitis C Screening (08/14/2013) Pathologist [facility] Hepatitis C Screening abstracted Historical Provider HEALTH MAINTENANCE Final Result from Last 3 Months or Most Recently Relevant to Health Maintenance Care Teams Construction Controller Relationship Specialty Start Date End Date Marleny Gutierrez MD [address] [place] [address] PCP - General Internal Medicine 08/04/21
--- OUTSIDE RECORDS SUMMARY | 2025-07-27 06:03 | XMS_ITS | Clinical Summary ---
Author Organization [facility] Address [address] [place] [address] Care Team Providers Care Customer Marketing Intern Name Role Phone Marleny Gutierrez MD Primary Care Provider Allergies No known active allergies Medications Medication [...] age to complete this topic Care Teams Customer Marketing Intern Relationship Specialty Start Date End Date Marleny Gutierrez MD PCP - General Internal Medicine 11/21/21
[2025-07-27 06:29] LABS: Hematocrit 31.4 % (37.0-47.0); Hemoglobin 9.8 g/dl (12.0-16.0); Imm Gran Abs Auto 0.02 X10*3/uL (0.00-0.03); Imm Gran Pct Auto 0.3 % (0.0-0.4); Lymphocytes Absolute Auto 1.4 X10*3/uL (1.2-4.9); Mean Corpuscular HGB Conc 31.2 g/dl (31.0-35.0); Mean Corpuscular Hemoglobin 28.0 pg (27.0-33.0); Mean Corpuscular Volume 89.7 fL (80.0-98.0); NRBC Abs Auto 0.000 X10*3/uL (0.0-0.012); NRBC Pct Auto 0.0 /100WBC (0.0-0.2); Platelet Count 250 X10*3/uL (160-400); Red Blood Count 3.50 X10*6/uL (4.20-5.50); White Blood Count 6.1 X10*3/uL (4.8-10.8)
[2025-07-27 06:56] LABS: Alanine Aminotransferase 9 U/L (0-31); Albumin Level 3.4 g/dL (3.5-5.0); Alkaline Phosphatase 62 U/L (39-117); Anion Gap 10 (12-20); Aspartate Amino Transferase 17 U/L (5-31); Blood Urea Nitrogen 22 mg/dL (9-16); Calcium 8.6 mg/dL (8.4-10.2); Carbon Dioxide 25 mmol/L (22-29); Chloride 111 mmol/L (96-108); Estimated Glomerular Filt Rate > 60; Potassium 3.8 mmol/L (3.3-5.1); Sodium 142 mmol/L (135-145); Total Protein 5.6 g/dL (6.5-8.0)
== END 2025-07-27 06:00 | disposition home or self-care (01) ==
LOC: HO.MMNH3L 05:59
PROVIDERS: Visit Provider Physician Assistant Medical
DX: I10 Essential (primary) hypertension (principal); I48.91 Unspecified atrial fibrillation; G81.90 Hemiplegia, unspecified affecting unspecified side
CPT/HCPCS: 36415; 80053; 84443; 85025

== ENCOUNTER 2025-07-29 11:30 | Outpatient (REF) | payer MEDICARE, MEDICAID, SELFPAY | END 2025-07-29 11:31 | disposition home or self-care (01) | LOC: HO.LAB 11:30 | PROVIDERS: Visit Provider Urology | DX: N39.0 Urinary tract infection, site not specified (principal); R31.0 Gross hematuria | CPT/HCPCS: 81003; 87086; 88112; 99202 ==

== ENCOUNTER 2025-07-29 11:30 | Outpatient (AMB) | payer MEDICARE, MEDICAID, SELFPAY ==
--- NOTE | 2025-07-29 11:40 | MHC.OFFVIS ---
Intake Visit Reasons: Hematuria Intake Note: Patient is present for Hematuria/UTI Antibiotic Allergy: None Allergies No Known Allergies Allergy (Unverified 07/01/25 09:38) HPI Comments Details: Concepción is a pleasant female. She is seen for the following urologic conditions - hematuria - urinary tract infection [facility]ident of [facility] Medications included apixaban Prior episode of gross hematuria UA today positive for UTI and blood Does experience urgency and frequency We will treat UTI Organize upper tract imaging and office cystoscopy COUNTS INCLUDE 234 BEDS AT THE [facility] Medical History (Updated 07/29/25 @ 12:04 by Kaden Mendoza MD) Hematuria Aphasia Dysphagia Anemia Adjustment disorder with depressed mood Hypothyroidism HTN (hypertension) PAF (paroxysmal atrial fibrillation) Major depressive disorder Infrarenal abdominal aortic aneurysm (AAA) without rupture Hyperlipidemia Hemiplegia and hemiparesis following cerebral infarction affecting right dominant side Hemiplegia Review of Systems Const Denies chills and Denies fever(s) Card Reports no additional complaints and Denies syncope Resp Denies cough GI Denies abdominal pain and Denies heartburn Reports as per HPI and Denies change in libido Neuro Denies syncope Psych Denies change in libido Endo Denies change in libido Physical Exam Const General: cooperative, healthy appearing, comfortable and no acute distress Orientation/consciousness: patient oriented x3 HEENT Face and sinus: Yes normal facial exam Mouth: moist mucous membranes Neck Neck: Yes normal visual inspection, Yes full ROM and Yes trachea midline Chest Chest palpation & inspection: normal inspection of the chest Resp Effort & Inspection: normal respiratory effort, able to speak in complete sentences and no respiratory distress GI Inspection: Yes normal to inspection Back/Spine/Pelvis Cervical Spine: normal cervical lordosis Thoracic/Lumbar Spine: thoracic and lumbar spine normal to inspection Skin General skin exam: no rashes or lesions noted Neuro General: patient oriented x3, gait normal, tone normal and moves all extremities Extrem General: Yes normal to inspection and Yes capillary refill normal Results AMB Urinalysis, Automated UA Leukoctes 500 Amanda/uL Last Edit by JACOB Barnhart on 07/29/25 11:50 UA Nitrite Positive Last Edit by JACOB Barnhart on 07/29/25 11:50 UA Urobilinogen 1 mg/dL Last Edit by JACOB Barnhart on 07/29/25 11:50 UA Protein 300 mg/dL Last Edit by JACOB Barnhart on 07/29/25 11:50 UA pH 7.0 Last Edit by Jacqueline Moran, RMA on 07/29/25 11:50 UA Blood 200 Ahsan/uL Last Edit by Jacqueline Moran, RMA on 07/29/25 11:50 UA Specific [place] 1.015 Last Edit by Jacqueline Moran, RMA on 07/29/25 11:50 UA Ketone Negative Last Edit by Jacqueline Moran, RMA on 07/29/25 11:50 UA Bilirubin 0 mg/dL Last Edit by Jacqueline Moran, RMA on 07/29/25 11:50 UA Glucose 0 mg/dL Last Edit by Jacqueline Moran, A on 07/29/25 11:50 Results Reviewed Results Reviewed: Laboratory Last Values Urine pH (Auto) 7.0 07/29/25 11:46 Specific [place] (Auto) 1.015 07/29/25 11:46 Urine Protein (Auto) 300 mg/dL 07/29/25 11:46 Glucose (UA)(Auto) 0 mg/dL 07/29/25 11:46 Urine Ketones (Auto) Negative 07/29/25 11:46 Urine Blood (Auto) 200 Ahsan/uL 07/29/25 11:46 Urine Nitrite (Auto) Positive 07/29/25 11:46 Urine Bilirubin (Auto) 0 mg/dL 07/29/25 11:46 Urine Urobilinogen (Auto) 1 mg/dL 07/29/25 11:46 Leukocyte Esterase (Auto) 500 Amanda/uL 07/29/25 11:46 Assessment & Plan Assessment & Plan (1) Gross hematuria: Code(s): R31.0 - Gross hematuria Category: Medical (2) Chronic UTI (urinary tract infection): Code(s): N39.0 - Urinary tract infection, site not specified Category: Medical Plan UTI treatment Upper tract imaging Office cystoscopy Orders: Orders AMB Urinalysis Automated Today Z13.9 - Encounter for screening, unspecified Urine Cytology Today N39.0 - Urinary tract infection, site not specified, R31.0 - Gross hematuria Urine Culture Today N39.0 - Urinary tract infection, site not specified, R31.0 - Gross hematuria Medications: New nitrofurantoin macrocrystal 100 mg PO BID 14 caps 0RF 7 days N39.0 - Urinary tract infection, site not specified Patient Instructions: This note is constructed using voice recognition software. While every effort has been made to ensure accuracy auto rental supervisor errors may have been included. Imaging studies, laboratory and physical exam results were discussed and reviewed in detail. No major barriers to patient understanding were identified. An opportunity to ask questions regarding the treatment plan was provided. All questions were answered. The patient expressed understanding and agreement with the above treatment plan. The patient is aware they should contact our office by phone for worsening of their current condition or the appearance of new urologic symptoms. Compliance is encouraged with any medications and followup testing that is ordered. It is a privilege to participate in the urologic care of your patient. If you have any questions or concerns regarding treatment for the above conditions, or other urologic issues, please do not hesitate to contact me. The office telephone contact is [phone]. Sincerely, Dr Kaden Mendoza MD, [facility] - Urology Compassionate Specialist Care for the Genitourinary System Coding Level of Care Code New Pt Level 4 (62926) Diagnoses Gross hematuria R31.0 Chronic UTI (urinary tract infection) N39.0
--- OUTSIDE RECORDS SUMMARY | 2025-07-29 14:09 | XMS_ITS | Clinical Summary ---
Author Organization [facility] Address [address] [place] [address] Care Team Providers Care Supervisory Geographer Name Role Phone Marleny Gutierrez MD Primary Care Provider [phone] Allergies No known active allergies Medications Medication [...] age to complete this topic Care Teams Supervisory Geographer Relationship Specialty Start Date End Date Marleny Gutierrez MD PCP - General Internal Medicine 11/21/21
--- OUTSIDE RECORDS SUMMARY | 2025-07-29 14:09 | XMS_ITS | Clinical Summary ---
Author Organization [facility] Address [address] [place] [address] Care Team Providers Care Alteration Worker Name Role Phone Marleny Gutierrez MD Primary Care Provider [phone] Allergies No known active allergies Medications atorvastatin [...] with amlodipine. Coronary artery disease invo lving [place] coronary artery of [place] heart without angina pectoris 01/16/2024 Overview (09/28/2024): [...] 05/18/2022 Overview (09/28/2024): 8.24.22 Thoracic aortic aneurysm ([facility] V24) Overview (09/28/2024): 05/15 3.7 cm, mild dilatation Atrial fibrillation and flutter ([facility] V24, CM S/[facility] V28) 12/30/2021 Overview (09/28/2024): Anticoagulated [...] her PCP at her next visit. Seizure ([facility] V24, [facility] V28) 12/30/2021 Overview (09/28/2024): With subarachnoid bleed Subarachnoid hematoma ([facility] V24, [facility] V28) 12/30/2021 Overview (09/28/2024): Secondary to aneurysm Bernard's esophagus 12/03/2018 Iron deficiency anemia 11/01/2018 Vulvar cancer, carcinoma ([facility] V24, [facility] V 28) 03/23/2017 Overview (09/28/2024): Scheduled radical vulvectomy at [facility] Dr. 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 Lichen sclerosus 08/14/2013 Hypothyroidism 01/15/2013 Encounters Date Type Department Care Team Description 07/02/2025 Telephone [facility] [address] [facility] [address] [place] [address] Winsome Krishnamurthy MD from Last 3 Months Immunizations Immunization Administration Dates Next Due Diptheria & Tetanus, 6wks to less than 7yo 06/07 Surgical History Surgery Date Site/Laterality Comments OVARIAN CYST REMOVAL PROCEDURE: MA OVARIAN CYSTECTOMY UNI/BI; COMMENT: laproscopic COLONOSCOPY 04/08/2015 PROCEDURE: HISTORICAL COLONOSCOPY; COMMENT: Diverticulosis, hemorrhoids ESOPHAGOGASTRODUODENOSCOPY 04/08/2015 PROCEDURE: MA ESOPHAGOGASTRODUODENOSCOPY TRANSORAL DIAGNOSTIC; COMMENT: Barretts esophagus, hiatal hernia, erosive gastritis OTHER SURGICAL HISTORY 04/13/2017 N/A PROCEDURE: MA VULVECTOMY RADICAL COMPLETE; COMMENT: vulvar carcinoma OTHER SURGICAL HISTORY PROCEDURE: HISTORY OTHER; COMMENT: post aneurysm coiling COLONOSCOPY 10/2018 PROCEDURE: HISTORICAL COLONOSCOPY Medical History Medical History Date Comments History of stroke 09/24/2010 DX:History of stroke; COMMENT: had left sided weakness, recovered completerly Hypertension DX:Hypertension Hypothyroidism 01/15/2013 DX:Hypothyroidis m COVID-19 virus infection 05/18/2022 DX:COVI D-19 virus infection; COMMENT: 05.17.22 Thoracic aortic aneurysm ([facility] V24) 05/18/2022 DX:Thoracic aortic aneurysm (HCC); COMMENT: 05/15 3.7 cm, mild dilatation Aortic stenosis 06/07/2022 DX:Aortic stenos is; COMMENT: 05/15 mild and AI, mild MS and MR Osteoporosis 07/16/2022 DX:Osteoporosis; COMMENT: 07/15 T score spine -2.5 hip -3.1 Demand ischemia ([facility] V24 , [facility] V28) 12/19/2023 DX:Demand ischemia (HCC); [...] alternative screening schedule based on henok Mae., [facility] October 12, 2011 for patients [...] alternative screening schedule based on renan Mae, [facility]2011 for patients with osteopenia (based [...] Result * Hepatitis C Screening (08/14/2013) Pathologist [facility] Hepatitis C Screening abstracted Historical Provider HEALTH MAINTENANCE Final Result from Last 3 Months or Most Recently Relevant to Health Maintenance Care Teams Alteration Worker Relationship Specialty Start Date End Date Marleny Gutierrez MD [address] [place] [address] PCP - General Internal Medicine 08/04/21
== END 2025-07-29 12:11 | disposition home or self-care (01) ==
LOC: HO.HUSH 11:31
PROVIDERS: Visit Provider Urology
DX: R31.0 Gross hematuria (principal); N39.0 Urinary tract infection, site not specified; Z13.9 Encounter for screening, unspecified
CPT/HCPCS: 99204

== ENCOUNTER 2025-08-31 11:07 | Outpatient (REF) | payer MEDICARE, SELFPAY ==
--- NOTE | ~2025-08-31 | US_ITS ---
EXAMINATION: US RETROPERITONEAL LIMITED (RENAL ONLY) CLINICAL INFORMATION: Gross hematuria. COMPARISON: None available. TECHNIQUE: Isbell scale imaging of the kidneys. Exam is limited due to body habitus. FINDINGS: RIGHT KIDNEY: 10 x 4.2 x 3.9 cm (SAG x AP x TRV). The kidney is normal in size, contour, and echogenicity. Renal cortical thickness is normal. No calculi or focal parenchymal lesions. No hydronephrosis. LEFT KIDNEY: 8.6 x 4.7 x 3.6 cm (SAG x AP x TRV). The kidney is normal in size, contour, and echogenicity. Renal cortical thickness is normal. No calculi or focal parenchymal lesions. No hydronephrosis. There is a large partially thrombosed fusiform abdominal aortic aneurysm. This measures 6.2 x 7 cm in transverse and AP dimension and at least 13.7 cm in length. Patient states known abdominal aortic aneurysm. No comparison imaging available. US/US renal BI IMPRESSION: Limited renal ultrasound. No cause of hematuria seen. Very large partially thrombosed fusiform abdominal aortic aneurysm. Findings were communicated to Dr. Mendoza by phone technologist and tiger text at the completion of the exam. Electronically signed by: Liliam Mark MD 08/31/2025 01:53 PM EST
== END 2025-08-31 11:08 | disposition home or self-care (01) ==
LOC: HO.US 11:07
PROVIDERS: Visit Provider Urology
DX: R31.0 Gross hematuria (principal)
CPT/HCPCS: 76775

== ENCOUNTER → 2025-08-31 11:10 | Outpatient (BNV) | payer MEDICARE, SELFPAY | PROVIDERS: Visit Provider Radiology Diagnostic Radiology | DX: R31.0 Gross hematuria (principal) | CPT/HCPCS: 76775 ==

== ENCOUNTER 2025-09-15 13:48 | Outpatient (AMB) | payer MEDICARE, MEDICAID, SELFPAY ==
--- NOTE | 2025-09-15 13:49 | A.OFFVIS_ITS ---
Intake Visit Reasons: cysto/US SET UA Intake Note: Patient is present for Cystoscopy Antibiotic Allergy: None Urology meds: Nitrofurantoin Labs done :07/30/25 cytology , Urine cx 07/29/25 Imaging: Renal US 08/31/25 Plastic Bubble Packer Required: No Accompanied by: Son Allergies No Known Allergies Allergy (Verified 09/15/25 13:52) HPI Comments Details: Concepción is a pleasant female. She is seen for the following urologic conditions - hematuria - urinary tract infection Resident of group home Medications included apixaban Cystoscopy - cystitis chronic Start methenamine and vitamin-C Unlikely to be compliant with topical estrogen which would be 1st choice Follow-up for gross hematuria Imaging with large abdominal aortic aneurysm No diagnosable cause for hematuria [facility] Medical History (Updated 09/15/25 @ 15:00 by Kaden Mendoza MD) Hematuria Aphasia Dysphagia Anemia Adjustment disorder with depressed mood Hypothyroidism HTN (hypertension) PAF (paroxysmal atrial fibrillation) Major depressive disorder Infrarenal abdominal aortic aneurysm (AAA) without rupture Hyperlipidemia Hemiplegia and hemiparesis following cerebral infarction affecting right dominant side Hemiplegia Review of Systems Const Denies chills and Denies fever(s) Card Reports no additional complaints and Denies syncope Resp Denies cough GI Denies abdominal pain and Denies heartburn Reports as per HPI and Denies change in libido Neuro Denies syncope Psych Denies change in libido Endo Denies change in libido Physical Exam Const General: cooperative, healthy appearing, comfortable and no acute distress Orientation/consciousness: patient oriented x3 HEENT Face and sinus: Yes normal facial exam Mouth: moist mucous membranes Neck Neck: Yes normal visual inspection, Yes full ROM and Yes trachea midline Chest Chest palpation & inspection: normal inspection of the chest Resp Effort & Inspection: normal respiratory effort, able to speak in complete sentences and no respiratory distress GI Inspection: Yes normal to inspection Back/Spine/Pelvis Cervical Spine: normal cervical lordosis Thoracic/Lumbar Spine: thoracic and lumbar spine normal to inspection Skin General skin exam: no rashes or lesions noted Neuro General: patient oriented x3, gait normal, tone normal and moves all extremities Extrem General: Yes normal to inspection and Yes capillary refill normal Office Procedures Bladder/Catheter Procedure Details: Patient found to have overflow incontinence due to retention. Per Dr. Mendoza will need bearden catheter in place for ongoing treatment with catheter changes at her facility every 4 weeks. 16Fr rouch bearden catheter with 10ml and leg bag inserted. Patient tolerated insertion. [id number] Temporary Bladder Catheter Procedure code (CPT) selection complete Cystoscopy Consent Discussed risk and benefit or proposed procedure with the patient. Information consent for procedure given to the patient. Discussed technical aspects, risks, benefits and alternatives in full. Addressed all of the patient's questions and concerns regarding the procedure. The patient demonstrated knowledge and understanding. They wish to proceed with this procedure. Preparation The patient was prepped in the usual manner. A master tax advisor was present and in the room. Genitalia was prepped with betadine solution in a sterile manner. Lidocaine Jelly 2% was placed into the urethra and 16Fr flexible Olympus cystoscope was inserted into the meatus after adequate lubrication. Procedure Consent confirmed Genitalia prepped and draped using topical antiseptic and lidocaine jelly Cystoscopy performed using a sterile disposable Urovue digital 16 [place] cystoscope Meatus normal Urethra normal Bladder examination with retroflexion of cystoscope Bladder Orifices normal shape and position Trigone metaplasia Bladder Capacity Normal Trabeculations Grade 0 Cellule Formation None Diverticulum Formation None Mucosal Erythema patchy cystitis Bladder Tumor None [id number]-[id number] DISPOSABLE SCOPE URO-G FLEXIBLE SCOPE Procedure code (CPT) selection complete Office Meds lidocaine HCl 2 % mucosal jelly in applicator Performing Provider: Kaden Mendoza MD [place] [facility] [place] [facility] Administered by: Kira Witt RN on 09/15/25 14:19 Dose Route Admin Location Dispensed Lot Number Expiration Date [employer] 10 mL intra-urethral 10 mL nitrofurantoin monohydrate/macrocrystals 100 mg capsule Performing Provider: Kaden Mendoza MD [place] [facility] [place] [facility] Administered by: Kira Witt RN on 09/15/25 14:19 Dose Route Admin Location Dispensed Lot Number Expiration Date [employer] 100 mg PO 1 cap Assessment & Plan Assessment & Plan (1) Urinary retention with incomplete bladder emptying: Code(s): R33.9 - Retention of urine, unspecified Category: Medical Plan Unlikely to use topical estrogen Methenamine vitamin-C Orders: Orders AMB Cystoscopy 09/15/25 R31.0 - Gross hematuria AMB Bladder/Catheter Procedure 09/15/25 N39.0 - Urinary tract infection, site not specified, R31.0 - Gross hematuria, R33.9 - Retention of urine, unspecified Medications: New methenamine hippurate 1 g PO DAILY 90 tabs 1RF 90 days R33.9 - Retention of urine, unspecified ascorbic acid (vitamin C) 1,000 mg PO DAILY 90 tabs 1RF 90 days R33.9 - Retention of urine, unspecified Patient Instructions: This note is constructed using voice recognition software. While every effort has been made to ensure accuracy occupational nurse errors may have been included. Imaging studies, laboratory and physical exam results were discussed and reviewed in detail. No major barriers to patient understanding were identified. An opportunity to ask questions regarding the treatment plan was provided. All questions were answered. The patient expressed understanding and agreement with the above treatment plan. The patient is aware they should contact our office by phone for worsening of their current condition or the appearance of new urologic symptoms. Compliance is encouraged with any medications and followup testing that is ordered. It is a privilege to participate in the urologic care of your patient. If you have any questions or concerns regarding treatment for the above conditions, or other urologic issues, please do not hesitate to contact me. The office telephone contact is [phone]. Sincerely, Dr Kaden Mendoza MD, [facility] - Urology Compassionate Specialist Care for the Genitourinary System Coding Level of Care Code Est Pt Level 4 (61393) Diagnoses Urinary retention with incomplete bladder emptying R33.9 CPT Codes Bladder/Catheter Procedure - CPT: 82133-Weoeqb Temporary Bladder Catheter ([id number]) Cystoscopy - CPT: 63200-Pupngvvirp ([id number])
--- OUTSIDE RECORDS SUMMARY | 2025-09-15 14:59 | XMS_ITS | Clinical Summary ---
Author Organization [facility] Prior to 02/21/[address] [place] [address] Care Team Providers Care Contract Admin Name Role Phone Marleny Gutierrez MD Primary Care Provider [phone] Allergies No known active allergies Medications Medication [...] age to complete this topic Care Teams Contract Admin Relationship Specialty Start Date End Date Marleny Gutierrez MD PCP - General Internal Medicine 11/21/21
--- OUTSIDE RECORDS SUMMARY | 2025-09-15 14:59 | XMS_ITS | Clinical Summary ---
Author Organization [facility] Address [address] [place] [address] Care Team Providers [employer] Name Role Phone Marleny Gutierrez MD Primary Care Provider [phone] Allergies No known active allergies Medications atorvastatin (LIPITOR) 40 mg tablet Take 1 tablet (40 mg total) by mouth 1 (one) time each day. 04/16/2024 Active levothyroxine (SYNTHROID, LEVOTHROID) 88 mcg tablet Take 1 tablet (88 mcg total) by mouth 1 (one) time each day. 03/21/2024 Active apixaban (ELIQUIS) 5 mg tablet Take 1 tablet (5 mg total) by mouth 2 (two) times a day. 07/03/2025 Active amLODIPine (NORVASC) 10 mg tablet Take 1 tablet (10 mg total) by mouth at bedtime. Active lisinopriL (PRINIVIL,ZESTR IL) 10 mg tablet Take 1 tablet (10 mg total) by mouth at bedtime. Active carvediloL (COREG) 3.125 mg tablet Take 1 tablet (3.125 mg total) by mouth 2 (two) times a day with meals. 07/03/2025 Active melatonin 3 mg tablet Take 1 tablet (3 mg total) by mouth at bedtime as needed for sleep. 07/03/2025 Active ferrous sulfate 325 mg (65 mg iron) EC tablet Take 1 tablet (325 mg total) by mouth every other day. Do not crush, chew, or split. 07/03/2025 Active escitalopram (LEXAPRO) 10 mg tablet Take 1 tablet (10 mg total) by mouth 1 (one) time each day. 07/03/2025 Active guaiFENesin (ROBITUSSIN) 100 mg/5 mL liquid Take 5 mL (100 mg total) by mouth every 4 (four) hours if needed for cough. 07/03/2025 Active Active Problems Problem Noted Date Diagnosed Date Hypertension 09/28/2024 Overview (09/28/2024): Last Assessment & Plan: Patient blood pressure somewhat robust in office today, but well-controlled on chart review. For now, no changes in her current treatment plan with amlodipine. Coronary artery disease invo lving manzan[place] coronary artery of [place] heart without angina pectoris 01/16/2024 Overview (09/28/2024): [...] from the normal sinus rhythm. Demand ischemia 12/19/2023 Overview (09/28/2024): 12/15 NSTEMI with rapid afib Osteoporosis 07/16/2022 Overview (09/28/2024): 07/15 T score spine -2.5 hip -3.1 Aortic stenosis 06/07/2022 Overview (09/28/2024): 05/15 mild and AI, mild MS and MR 11/17 mild to mod COVID-19 virus infection 05/18/2022 Overview (09/28/2024): 8.24.22 Thoracic aortic aneurysm 05/18/2022 Overview (09/28/2024): 05/15 3.7 cm, mild dilatation Atrial fibrillation and flutter 12/30/2021 Overview (09/28/2024): Anticoagulated with Xarelto Rhythm [...] her PCP at her next visit. Seizure 12/30/2021 Overview (09/28/2024): With subarachnoid bleed Subarachnoid hematoma 12/30/2021 Overview (09/28/2024): Secondary to aneurysm Bernard's esophagus 12/03/2018 Iron deficiency anemia 11/01/2018 Vulvar cancer, carcinoma 03/23/2017 Overview (09/28/2024): Scheduled radical vulvectomy at [facility] Dr. 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 - [address] [place] [address] Winsome Krishnamurthy MD from Last 3 Months Immunizations Immunization Administration Dates Next Due Diptheria & Tetanus, 6wks to less than 7yo 06/07 Surgical History Surgery Date Site/Laterality Comments OVARIAN CYST REMOVAL PROCEDURE: OK OVARIAN CYSTECTOMY UNI/BI; COMMENT: laproscopic COLONOSCOPY 04/08/2015 PROCEDURE: HISTORICAL COLONOSCOPY; COMMENT: Diverticulosis, hemorrhoids ESOPHAGOGASTRODUODENOSCOPY 04/08/2015 PROCEDURE: OK ESOPHAGOGASTRODUODENOSCOPY TRANSORAL DIAGNOSTIC; COMMENT: Barretts esophagus, hiatal hernia, erosive gastritis OTHER SURGICAL HISTORY 04/13/2017 N/A PROCEDURE: OK VULVECTOMY RADICAL COMPLETE; COMMENT: vulvar carcinoma OTHER SURGICAL HISTORY PROCEDURE: HISTORY OTHER; COMMENT: post aneurysm coiling COLONOSCOPY 10/2018 PROCEDURE: HISTORICAL COLONOSCOPY Medical History Medical History Date Comments History of stroke 09/24/2010 DX:History of stroke; COMMENT: had left sided weakness, recovered completerly Hypertension DX:Hypertension Hypothyroidism 01/15/2013 DX:Hypothyroidis m COVID-19 virus infection 05/18/2022 DX:COVI D-19 virus infection; COMMENT: 05.17.22 Thoracic aortic aneurysm [place] [place] 05/18/2022 DX:Thoracic aortic aneurysm ([facility]); COMMENT: 05/15 3.7 cm, mild dilatation Aortic stenosis 06/07/2022 DX:Aortic stenos is; COMMENT: 05/15 mild and AI, mild MS and MR Osteoporosis 07/16/2022 DX:Osteoporosis; COMMENT: 07/15 T score spine -2.5 hip -3.1 Demand ischemia ([facility] V24 , [facility] V28) 12/19/2023 DX:Demand ischemia ([facility]); CO MMENT: 12/15 NSTEMI with rapid afib [...] Annual BMP Blood Test abstracted Historical Provider HEALTH MAINTENANCE Final Result * (ABNORMAL) Lipid [...] IMPRESSION: IMPRESSION: Osteoporosis by WHO criteria. The [facility] Department of Internal Medicine recommends using [...] alternative screening schedule based on henok Mae., [facility] October 12, 2011 for patients with osteopenia [...] IMPRESSION: IMPRESSION: Osteoporosis by WHO criteria. The [facility] Department of Internal Medicine recommendsusing National [...] screening schedule based on ellen Mae al., [facility] for patients with osteopenia (based on hip BMD T-score) is as follows: * advanced osteopenia (T scores -2.00 to -2.49), BMD testing every year * moderate osteopenia (T scores -1.50 to -1.99), BMD testing every 5years mild osteopenia or normal BMD (T scores -1.50 and higher), BMD testingevery 15 years us Marleny Gutierrez MD IMG DXA PROCEDURES Final [...] XR PROCEDURES Final Result * Colonoscopy (11/12/2018) [facility] Colonoscopy no interpreta tion,abstr acted Anatomical Region Laterality Modality Other Historical Provider HEALTH MAINTENANCE Final Result * Hepatitis C Screening (08/14/2013) [facility] Hepatitis C Screening abstracted Historical Provider HEALTH MAINTENANCE Final Result from Last 3 Months or Most Recently Relevant to Health Maintenance Care Teams Owner [employer] Relationship Specialty Start Date End Date Marleny Gutierrez MD [address] [place] [address] PCP - General Internal Medicine 08/04/21
== END 2025-09-15 15:36 | disposition home or self-care (01) ==
LOC: HO.HUSH 13:48
PROVIDERS: Visit Provider Urology
DX: R31.0 Gross hematuria (principal)
CPT/HCPCS: 52000

== ENCOUNTER → 2025-09-15 13:48 | Outpatient (BNVA) | payer MEDICARE, MEDICAID, SELFPAY | PROVIDERS: Visit Provider Urology | DX: R33.9 Retention of urine, unspecified (principal) | CPT/HCPCS: 52000 ==